=== PATIENT | male | born 1990 ===

== ENCOUNTER 2020-09-08 18:39 | Emergency (ER) | payer MEDICAID, OTHER ==
[~2020-09-08] VITALS: Ht 180.3 cm; Wt 97.9 kg
[2020-09-08] MEDS ORDERED: IBUP-1984 PO (21:54)
[2020-09-08] MEDS ORDERED: PENI250T2 PO (21:54)
[2020-09-08 22:10] VITALS: BP 129/81
== END 2020-09-08 22:06 | disposition home or self-care (01) ==
LOC: ER 18:40
DX: K04.7 Periapical abscess without sinus (principal); Z79.899 Other long term (current) drug therapy
CPT/HCPCS: 99283